=== PATIENT | female | born 1945 | race Hispanic/Latino ===

== ENCOUNTER 2019-01-13 20:38 | Emergency (ER) | payer OTHER, MEDICARE ==
[2019-01-13] MEDS ORDERED: METHYLPREDNISOLONE SOD SUCC 125MG/2ML VIAL ONE (21:30)
[2019-01-13] MEDS ORDERED: ACETAMINOPHEN-CODEINE ELIXIR 5 ML UDCUP ONE (21:31)
== END 2019-01-13 22:21 | disposition home or self-care (01) ==
LOC: EDH 20:38
DX: M25.512 Pain in left shoulder (principal); I10 Essential (primary) hypertension; I25.10 Atherosclerotic heart disease of native coronary artery without angina pectoris; Z86.73 Personal history of transient ischemic attack (TIA), and cerebral infarction without residual deficits; Z95.1 Presence of aortocoronary bypass graft
CPT/HCPCS: 93005; 96372; 99283; J2930